=== PATIENT | female | born 1935 | race Hispanic/Latino ===

== ENCOUNTER 2016-05-06 01:52 | Observation (INO) | payer MEDICARE ==
[2016-05-06 01:52] VITALS: BMI 24.7
[2016-05-06 02:07] VITALS: TEMP 98.6
[2016-05-06] MEDS ORDERED: Sodium Chloride 0.9% 1,000 ML IV STA (02:18)
--- NOTE | 2016-05-06 02:34 | ED PDOC ---
HPI: Abdomen Time Seen by Provider: 05/06/16 01:58 Chief Complaint (Nursing): Abdominal Pain Chief Complaint (Provider): Abdominal pain, nausea, vomiting History Per: Patient History/Exam Limitations: no limitations Onset/Duration Of Symptoms: Hrs (1) Current Symptoms Are (Timing): Still Present Severity: Moderate Quality Of Discomfort: "Pain" Associated Symptoms: Nausea, Vomiting. denies: Fever, Chest Pain Additional Complaint(s): Diandra Nowak is a 81 y/o female, with a past medical history of an abdominal aortic aneurysm, diverticulosis, diverticulitis, and hypertension, presenting to the ER on 05/06/2016 with complaints of acute abdominal pain, nausea, and vomiting x1 hour. Patient reports abdominal pain began when she was lying awake in her bed. Pain, which radiates to her lower back, later became associated with nausea and vomiting x3 (non-bloody/non-bilious). Patient states her symptoms may have developed after consuming pizza earlier this evening. Patient denies any associated fever, cough, SOB, or CP. Patient mentioned developing mild dizziness in addition. Past Medical History Reviewed: Historical Data, Nursing Documentation, Vital Signs Vital Signs: Last Vital Signs Temp 98.6 F 05/06/16 02:03 Pulse 75 05/06/16 06:59 Resp 20 05/06/16 06:59 BP 128/59 L 05/06/16 06:59 Pulse Ox 96 05/06/16 11:06 - Medical History PMH: Anxiety, Bipolar Disorder, Diverticulitis, HTN, Hypercholesterolemia, Hyperlipidemia Denies: HIV, Chronic Kidney Disease - Surgical History Surgical History: (x3) Other surgeries: aortic aneurysm - Family History Family History: States: Unknown Family Hx - Social History Ex-Smoker (has not smoked in the last 12 months): Yes - Home Medications Home Medications: Ambulatory Orders Medication Instructions Recorded Atorvastatin [Lipitor] 20 mg PO DAILY 05/06/16 Cholecalciferol (Vitamin D3) 1,000 mg PO DAILY 05/06/16 [Vitamin D3] Ibuprofen/Pseudoephedrine HCl 1 cap PO PRN PRN 05/06/16 [Advil Cold-Sinus Liqui-Gels] Lorazepam [Ativan] 1 mg PO TID 05/06/16 Metoprolol Succinate [Metoprolol 50 mg PO DAILY 05/06/16 Succinate] Multivitamin/Iron/Folic Acid 1 tab PO DAILY 05/06/16 [Centrum] Sulfamethoxazole/Trimethoprim 1 tab PO BID #14 tab 05/06/16 [Bactrim DS 800 mg-160 mg] amLODIPine [Norvasc] 5 mg PO DAILY 05/06/16 - Allergies Allergies/Adverse Reactions: Allergies Allergy/AdvReac Type Severity Reaction Status Date / Time No Known Allergies Allergy Verified 10/06/13 07:36 Review of Systems ROS Statement: Except As Marked, All Systems Reviewed And Found Negative Constitutional: Negative for: Fever Cardiovascular: Negative for: Chest Pain Respiratory: Negative for: Cough, Shortness of Breath Gastrointestinal: Positive for: Nausea, Vomiting, Abdominal Pain Neurological: Positive for: Dizziness Physical Exam - Reviewed Nursing Documentation Reviewed: Yes Vital Signs Reviewed: Yes - Physical Exam Appears: Positive for: Uncomfortable Head Exam: Positive for: ATRAUMATIC, NORMOCEPHALIC Skin: Positive for: Normal Color Eye Exam: Positive for: Normal appearance, EOMI, PERRL ENT: Positive for: Other (dry mucous membranes ) Neck: Positive for: Normal, Painless ROM, Supple Cardiovascular/Chest: Positive for: Regular Rate, Rhythm. Negative for: Murmur Respiratory: Positive for: Normal Breath Sounds. Negative for: Respiratory Distress Gastrointestinal/Abdominal: Positive for: Tenderness ((+) epigastric and RUQ) Extremity: Positive for: Normal ROM. Negative for: Deformity Neurologic/Psych: Positive for: Alert, Oriented, Gait (steady). Negative for: Motor/Sensory Deficits - Laboratory Results Result Diagrams: 05/06/16 02:40 05/06/16 02:40 - ECG O2 Sat by Pulse Oximetry: 100 Medical Decision Making Medical Decision Makin:58 Initial Impression- acute abdominal pain, nausea, vomiting, in setting of known diverticuli disease. Initial Plan- * CT Abd/Pelvis * EKG * CMP * Lactic Acid * Lipase * Troponin * Urine Dip * CBC w/ differential * PTT * PT * CXR * Morphine 4 mg IV * Sodium Chloride 1,000 ml IV * Pepcid 20 mg IV * Zofran 4 mg IV * Urinalysis * Re-evaluate Documented by Angie Valdez, acting as a scribe for Juan Pablo Chamberlain MD. All medical record entries made by the Scribe were at my direction and personally dictated by me. I have reviewed the chart and agree that the record accurately reflects my personal performance of the history, physical exam, medical decision making, and the department course for this patient. I have also personally directed, reviewed, and agree with the discharge instructions and disposition. ED OBSERVATION Date of observation admission: 05/06/16 Time of observation admission: 03:00 - Observation admission statement Patient is being placed in observation because:: Secondary to ED workup - Goals of Observation Goals of observation are:: Pending CT and re-evaluation - Progress Note Progress Note: 05/06/16 07:00 Signing pt out to Dr. Natalie MD. Pending CT report and re-evaluation. Disposition - Clinical Impression Clinical Impression: UTI (urinary tract infection) - Patient ED Disposition Is Patient to be Admitted: Transfer of Care - Disposition Disposition: Transfer of Care Disposition Time: 07:00 Condition: FAIR Patient Signed Over To: Geri Estrada
[2016-05-06 02:46] LABS: BASO # 0.1 K/uL (0.0-0.2); BASO % 0.5 % (0.0-2.0); LYMPH # 0.5 K/uL (1.0-4.3); MEAN CELL VOLUME 84.9 fl (81.0-99.0); MEAN CORPUSCULAR HEMOGLOBIN 27.3 pg (27.0-31.0); MEAN CORPUSCULAR HGB CONC 32.2 g/dL (33.0-37.0); MEAN PLATELET VOLUME 9.1 fl (7.2-11.7); MONO # 0.2 K/uL (0.0-0.8); MONO % 1.8 % (0.0-10.0); NEUT # 10.5 K/uL (1.8-7.0); NEUT % 93.7 % (50.0-75.0); PLATELET COUNT 177 K/uL (130-400); RED CELL DISTRIBUTION WIDTH 15.5 % (11.5-14.5); WHITE BLOOD COUNT 11.2 K/uL (4.8-10.8)
[2016-05-06] MEDS ORDERED: Iohexol 240 (50 ml) ONE (02:50)
[2016-05-06 02:52] LABS: ALB/GLOB RATIO 1.4 (1.0-2.1); ALKALINE PHOSPHATASE 104 U/L (38-126); ALT/SGPT 29 U/L (9-52); AST/SGOT 24 U/L (14-36); BILIRUBIN,TOTAL 1.5 mg/dl (0.2-1.3); BLOOD UREA NITROGEN 19 mg/dl (7-17); CALCIUM 9.3 mg/dL (8.4-10.2); CARBON DIOXIDE 25 mmol/L (22-30); CHLORIDE 104 mmol/L (98-107); GFR AFRICAN-AMERICAN > 60; GLUCOSE,RANDOM 153 mg/dL (65-105); LIPASE 56 U/L (23-300); POTASSIUM 3.9 MMOL/L (3.6-5.0); SODIUM 142 mmol/l (132-148)
[2016-05-06 03:03] LABS: PARTIAL THROMBOPLASTIN TIME 23.8 SECONDS (23.3-32.5)
[2016-05-06] MEDS: Iohexol 240 (50 ml) PO ONE ×2 (03:07→06:54)
[2016-05-06 03:40] VITALS: RESP 20
[2016-05-06 03:43] LABS: NEUTROPHIL 93 % (42-75); REACTIVE LYMPHOCYTES 1 % (0-0); TOTAL CELLS COUNTED 100
[2016-05-06 06:10] LABS: RBC URINE 63 /hpf (0-3); URINE BACTERIA MANY (<OCC); URINE BILIRUBIN NEGATIVE (NEGATIVE); URINE BLOOD MODERATE (NEGATIVE); URINE COLOR AMBER (YELLOW); URINE GLUCOSE (UA) NEG (Normal); URINE KETONE 20 mg/dL (NEGATIVE); URINE LEUKOCYTE ESTERASE MOD Leu/uL (Negative); URINE PROTEIN NEGATIVE (NEGATIVE); URINE UROBILINOGEN 0.2-1.0 mg/dL (0.2-1.0); WBC URINE 17 /hpf (0-5)
--- NOTE | 2016-05-06 06:59 | RAD ---
HISTORY: abd pain COMPARISON: No prior. FINDINGS: LUNGS: No active pulmonary disease. PLEURA: No significant pleural effusion identified, no pneumothorax apparent. CARDIOVASCULAR: Normal. Atherosclerotic aorta. OSSEOUS STRUCTURES: No significant abnormalities. VISUALIZED UPPER ABDOMEN: Normal. OTHER FINDINGS: None. IMPRESSION: No active disease.
[2016-05-06 07:00] VITALS: BP 128/59; PULSE 75
--- NOTE | 2016-05-06 07:07 | ED PDOC ---
- Laboratory Results Result Diagrams: 05/06/16 02:40 05/06/16 02:40 - ECG O2 Sat by Pulse Oximetry: 96 (RA) Pulse Ox Interpretation: Normal Medical Decision Making Medical Decision Makin signed over to me by kathryn Chamberlain MD pending CT, reassessment. Disposition Doctor Will See Patient In The: Office - Clinical Impression Clinical Impression: Urinary tract infection - POA Present On Arrival: None - Disposition Disposition: Routine/Home Disposition Time: 03:00 Condition: STABLE ED OBSERVATION Discharge: Yes Date of observation admission: 05/06/16 Time of observation admission: 03:00 - Progress Note Progress Note: 05/06/16 11:06 feeling better. labs c/w UTI. Additional Comments - Additional Comments Additional Comments: Scribe Attestation Documented by Jfefy Barbosa, acting as a scribe for Geri Estrada MD. Provider Scribe Attestation All medical record entries made by the Scribe were at my direction and personally dictated by me. I have reviewed the chart and agree that the record accurately reflects my personal performance of the history, physical exam, medical decision making, and the department course for this patient. I have also personally directed, reviewed, and agree with the discharge instructions and disposition.
--- NOTE | 2016-05-06 08:15 | CARD ---
APPROVED REPORT EKG Measurement Heart [id number] <Conclusion> Sinus rhythm with sinus arrhythmia with 1st degree AV block Left axis deviation Left bundle branch block Abnormal ECG
--- NOTE | 2016-05-06 09:03 | CT ---
PROCEDURE: CT Abdomen and Pelvis with contrast HISTORY: epigastric pain COMPARISON: 11/12/2015 TECHNIQUE: Contrast dose: Radiation dose: Total exam DLP = mGy-cm. FINDINGS: LOWER THORAX: Unremarkable. Small hiatal hernia. LIVER: Unremarkable. No gross lesion or ductal dilatation. GALLBLADDER AND BILE DUCTS: Gallstones. PANCREAS: Unremarkable. No gross lesion or ductal dilatation. SPLEEN: Unremarkable. ADRENALS: Unremarkable. No mass. KIDNEYS AND URETERS: 5 centimeter left lower pole renal cyst. VASCULATURE: 3.8 centimeter infrarenal abdominal aortic aneurysm status post endograft repair. No evidence of endograft leak. BOWEL: Extensive colonic diverticulosis. APPENDIX: Normal appendix. PERITONEUM: Unremarkable. No free fluid. No free air. LYMPH NODES: Unremarkable. No enlarged lymph nodes. BLADDER: Unremarkable. REPRODUCTIVE: Hysterectomy. BONES: No acute fracture. OTHER FINDINGS: None. IMPRESSION: 3.8 centimeter infrarenal abdominal aortic aneurysm status post endograft repair. No evidence of endograft leak. Gallstones. No significant interval change.
[2016-05-06] MEDS ORDERED: Tmp-Smz 800 mg-160 mg DS Tab PO STA (10:32)
[2016-05-06] MEDS ORDERED: Tmp-Smz 800 mg-160 mg DS Tab ONE (11:13)
[2016-05-06 22:12] VITALS: O2SAT 100
== END 2016-05-06 11:07 | disposition home or self-care (01) ==
LOC: H.ER 01:52 → H.EROBSV 03:00
PROVIDERS: ADMIT Emergency Medicine; ATTEND Emergency Medicine
DX: N39.0 Urinary tract infection, site not specified (principal); Z87.891 Personal history of nicotine dependence; I10 Essential (primary) hypertension; E78.00 Pure hypercholesterolemia, unspecified; E78.5 Hyperlipidemia, unspecified; F31.9 Bipolar disorder, unspecified; F41.9 Anxiety disorder, unspecified
CPT/HCPCS: 71010; 74177; 80053; 81003; 83605; 83690; 84484; 85025; 85610; 85730; 87086; 93005; 96360; 96361; 99285; G0378; J2270; J2405; J7040

== ENCOUNTER 2016-05-10 13:33 | Inpatient (IN) | payer MEDICARE ==
[2016-05-10 13:33] VITALS: BMI 24.7
--- NOTE | 2016-05-10 14:08 | ED PDOC ---
HPI: Abdomen Time Seen by Provider: 05/10/16 13:50 Chief Complaint (Nursing): Abdominal Pain Chief Complaint (Provider): Abdominal Pain History Per: Patient History/Exam Limitations: no limitations Onset/Duration Of Symptoms: Days (x2) Associated Symptoms: Back Pain (lower back pain). denies: Fever, Nausea, Vomiting, Diarrhea Additional Complaint(s): 13:50 Diandra Nowak is an 81 year old female with a history of hypertension, hypercholesterolemia, hyperlipidemia, diverticulitis, and seizures that presents to the ED with a chief complains of stomach pain that she has been experiencing for the past two days. Patient states that the pain is constant, and that it has radiated to her lower back, "near the top of her rectum." She was seen in the ED five days ago for abdominal pain as well, at which point she was diagnosed with a UTI and was given antibiotics. Patient reports that she has yet to take any pain medication, and denies any nausea, vomiting, diarrhea, fever, dysuria, or syncope. PMD: Michael Vincent [employer] [facility]- Dr. Conde Past Medical History Reviewed: Historical Data, Nursing Documentation, Vital Signs Vital Signs: Last Vital Signs Temp 97.7 F 05/11/16 08:44 Pulse 67 05/11/16 09:30 Resp 18 05/11/16 08:44 BP 110/60 05/11/16 09:30 Pulse Ox 93 L 05/11/16 08:44 - Medical History PMH: Anxiety, Bipolar Disorder, Diverticulitis, HTN, Hypercholesterolemia, Hyperlipidemia Denies: HIV, Chronic Kidney Disease - Surgical History Surgical History: (x3) Other surgeries: aortic aneurysm graft - Family History Family History: States: Unknown Family Hx - Home Medications Home Medications: Ambulatory Orders Medication Instructions Recorded Atorvastatin [Lipitor] 20 mg PO DAILY 05/06/16 Lorazepam [Ativan] 1 mg PO TID 05/06/16 Metoprolol Succinate [Metoprolol 50 mg PO DAILY 05/06/16 Succinate] amLODIPine [Norvasc] 5 mg PO DAILY 05/06/16 - Allergies Allergies/Adverse Reactions: Allergies Allergy/AdvReac Type Severity Reaction Status Date / Time No Known Allergies Allergy Verified 05/10/16 13:41 Review of Systems Constitutional: Negative for: Fever Gastrointestinal: Positive for: Abdominal Pain (episgatric pain). Negative for : Nausea, Vomiting, Diarrhea Genitourinary Female: Negative for: Dysuria Musculoskeletal: Positive for: Back Pain (lower back pain) Neurological: Negative for: Other (syncope) Physical Exam - Reviewed Nursing Documentation Reviewed: Yes Vital Signs Reviewed: Yes - Physical Exam Appears: Positive for: Non-toxic, Uncomfortable Head Exam: Positive for: ATRAUMATIC, NORMOCEPHALIC Skin: Positive for: Normal Color, Dry Cardiovascular/Chest: Positive for: Regular Rate, Rhythm. Negative for: Murmur Respiratory: Positive for: Normal Breath Sounds. Negative for: Wheezing Gastrointestinal/Abdominal: Positive for: Soft, Tenderness (epigastric tenderness). Negative for: Mass, Distended Back: Positive for: Normal Inspection Neurologic/Psych: Positive for: Alert, Oriented - Laboratory Results Result Diagrams: 05/11/16 05:30 05/11/16 05:30 - ECG O2 Sat by Pulse Oximetry: 99 (RA) Pulse Ox Interpretation: Normal Medical Decision Making Medical Decision Makin:15 Initial Impression: Abdominal Aortic Aneurysm vs. Rupture vs. Leaking AAA vs. Gastritis vs. Pancreatitis vs. Diverticulitis vs. Worsening UTI Initial Plan: * CT Scan A/P with contrast * EKG * CBC * CMP * Lipase * Troponin * Urine dip * Urinlaysis * Morphine 4 mg IV * Iohexol 50 ml INH * Reevaluation Results from Patient's CT A/P from 05/06/16 FINDINGS: LOWER THORAX: Unremarkable. Small hiatal hernia. LIVER: Unremarkable. No gross lesion or ductal dilatation. GALLBLADDER AND BILE DUCTS: Gallstones. PANCREAS: Unremarkable. No gross lesion or ductal dilatation. SPLEEN: Unremarkable. ADRENALS: Unremarkable. No mass. KIDNEYS AND URETERS: 5 centimeter left lower pole renal cyst. VASCULATURE: 3.8 centimeter infrarenal abdominal aortic aneurysm status post endograft repair. No evidence of endograft leak. BOWEL: Extensive colonic diverticulosis. APPENDIX: Normal appendix. PERITONEUM: Unremarkable. No free fluid. No free air. LYMPH NODES: Unremarkable. No enlarged lymph nodes. BLADDER: Unremarkable. REPRODUCTIVE: Hysterectomy. BONES: No acute fracture. OTHER FINDINGS: None. IMPRESSION: 3.8 centimeter infrarenal abdominal aortic aneurysm status post endograft repair. No evidence of endograft leak. Gallstones. No significant interval change. Scribe Attestation: Documented by Teresa Meier, acting as a scribe for Kyung Cooper MD. Provider Scribe Attestation: All medical record entries made by the Scribe were at my direction and personally dictated by me. I have reviewed the chart and agree that the record accurately reflects my personal performance of the history, physical exam, medical decision making, and the department course for this patient. I have also personally directed, reviewed, and agree with the discharge instructions and disposition. Disposition - Clinical Impression Clinical Impression: Diverticulitis - Patient ED Disposition Is Patient to be Admitted: Transfer of Care Counseled Patient/Family Regarding: Studies Performed, Diagnosis - Disposition Disposition: Transfer of Care Disposition Time: 15:00 Condition: FAIR Patient Signed Over To: Lora Rowe Handoff Comments: pending CT abdomen.
[2016-05-10] MEDS ORDERED: Iohexol 240 (50 ml) PO ONE (14:20)
[2016-05-10] MEDS ORDERED: Iohexol 240 (50 ml) ONE (14:23)
[2016-05-10 14:51] LABS: BASO # 0.1 K/uL (0.0-0.2); BASO % 0.6 % (0.0-2.0); EOS # 0.1 K/uL (0.0-0.7); EOS % 0.5 % (0.0-4.0); HEMATOCRIT 44.1 % (34.0-47.0); LYMPH # 0.9 K/uL (1.0-4.3); LYMPH % 6.5 % (20.0-40.0); MEAN CELL VOLUME 83.6 fl (81.0-99.0); MEAN CORPUSCULAR HEMOGLOBIN 28.2 pg (27.0-31.0); MEAN CORPUSCULAR HGB CONC 33.7 g/dL (33.0-37.0); MONO # 0.5 K/uL (0.0-0.8); MONO % 4.1 % (0.0-10.0); NEUT # 11.8 K/uL (1.8-7.0); NEUT % 88.3 % (50.0-75.0); PLATELET COUNT 211 K/uL (130-400); RED CELL DISTRIBUTION WIDTH 15.3 % (11.5-14.5); WHITE BLOOD COUNT 13.3 K/uL (4.8-10.8)
[2016-05-10 15:02] LABS: ALB/GLOB RATIO 1.3 (1.0-2.1); BILIRUBIN,TOTAL 1.5 mg/dl (0.2-1.3); CALCIUM 10.5 mg/dL (8.4-10.2); POTASSIUM 3.5 MMOL/L (3.6-5.0); TOTAL PROTEIN 6.9 G/DL (6.3-8.2)
--- NOTE | 2016-05-10 15:08 | ED PDOC ---
- Laboratory Results Result Diagrams: 05/10/16 14:00 05/10/16 14:00 - ECG O2 Sat by Pulse Oximetry: 99 (RA) Medical Decision Making Medical Decision Makin:00 Patient signed out to me by Dr. Cooper pending CT. 19:18 Discussed with patient the results of CT Scan, will send the patient the results. Patient given IV antibiotics. Spoke to Dr. Vincent, will get in contact with hospitalist to admit patient. CT Scan A/P FINDINGS: LOWER THORAX: Unremarkable. LIVER: Unremarkable. No gross lesion or ductal dilatation. GALLBLADDER AND BILE DUCTS: Small stones are layered in the gallbladder PANCREAS: Unremarkable. No gross lesion or ductal dilatation. SPLEEN: Unremarkable. ADRENALS: Unremarkable. No mass. KIDNEYS AND URETERS: Unremarkable. No hydronephrosis. No solid mass. VASCULATURE: There is an aortic endo graft in place. The aorta measures 3.8 cm in diameter. BOWEL: There is severe diverticulosis of the sigmoid colon. Minimal inflammatory changes are seen in the adjacent fat planes which could be chronic. Mild acute diverticulitis is also possible. There is a moderate amount of stool in the rectum APPENDIX: Unremarkable. Normal appendix. PERITONEUM: Unremarkable. No free fluid. No free air. LYMPH NODES: Unremarkable. No enlarged lymph nodes. BLADDER: Unremarkable. REPRODUCTIVE: Unremarkable. BONES: No acute fracture. OTHER FINDINGS: None. IMPRESSION: There is severe diverticulosis of the sigmoid colon with possible mild diverticulitis. 19:[address] Curtis, agreed to admit patient. iv abx ordered. pt and pts son aware. Scribe Attestation: Documented by Teresa Meier, acting as a scribe for Lora Rowe MD. Provider Scribe Attestation: All medical record entries made by the Scribe were at my direction and personally dictated by me. I have reviewed the chart and agree that the record accurately reflects my personal performance of the history, physical exam, medical decision making, and the department course for this patient. I have also personally directed, reviewed, and agree with the discharge instructions and disposition. Disposition Discussed With : He Calix Counseled Patient/Family Regarding: Studies Performed, Diagnosis - Clinical Impression Clinical Impression: Diverticulitis - POA Present On Arrival: None - Disposition Disposition: Admitted as In-Patient Disposition Time: 19:25 Condition: FAIR
[2016-05-10 15:14] LABS: TROPONIN I 0.018 ng/mL (0.00-0.120)
[2016-05-10 15:53] LABS: EOSINOPHIL 1 % (0-7); NEUTROPHIL 91 % (42-75); REACTIVE LYMPHOCYTES 1 % (0-0); TOTAL CELLS COUNTED 100
--- NOTE | 2016-05-10 17:58 | CARD ---
APPROVED REPORT EKG Measurement Heart [id number] <Conclusion> Sinus rhythm with frequent premature ventricular complexes Left axis deviation Left bundle branch block Abnormal ECG
--- NOTE | 2016-05-10 18:51 | CT ---
PROCEDURE: CT Abdomen and Pelvis without intravenous contrast HISTORY: abdominal pain COMPARISON: 05/06/2016 TECHNIQUE: Without contrast.. Contrast Dose: Radiation dose: Total exam DLP = 384 mGy-cm. FINDINGS: LOWER THORAX: Unremarkable. LIVER: Unremarkable. No gross lesion or ductal dilatation. GALLBLADDER AND BILE DUCTS: Small stones are layered in the gallbladder PANCREAS: Unremarkable. No gross lesion or ductal dilatation. SPLEEN: Unremarkable. ADRENALS: Unremarkable. No mass. KIDNEYS AND URETERS: Unremarkable. No hydronephrosis. No solid mass. VASCULATURE: There is an aortic endo graft in place. The aorta measures 3.8 cm in diameter. BOWEL: There is severe diverticulosis of the sigmoid colon. Minimal inflammatory changes are seen in the adjacent fat planes which could be chronic. Mild acute diverticulitis is also possible. There is a moderate amount of stool in the rectum APPENDIX: Unremarkable. Normal appendix. PERITONEUM: Unremarkable. No free fluid. No free air. LYMPH NODES: Unremarkable. No enlarged lymph nodes. BLADDER: Unremarkable. REPRODUCTIVE: Unremarkable. BONES: No acute fracture. OTHER FINDINGS: None. IMPRESSION: There is severe diverticulosis of the sigmoid colon with possible mild diverticulitis.
[2016-05-10] MEDS ORDERED: Piperacillin/Tazobact 4.5 GM in Sodium Chloride 0.9% 100 ML IVPB STA (19:14)
[2016-05-10 19:58] LABS: RBC URINE 6 /hpf (0-3); URINE BACTERIA RARE (<OCC); URINE BILIRUBIN NEGATIVE (NEGATIVE); URINE BLOOD NEGATIVE (NEGATIVE); URINE COLOR AMBER (YELLOW); URINE GLUCOSE (UA) NEG (Normal); URINE KETONE TRACE mg/dL (NEGATIVE); URINE LEUKOCYTE ESTERASE TRACE Leu/uL (Negative); URINE PROTEIN 30 mg/dL (NEGATIVE); WBC URINE 5 /hpf (0-5)
--- NOTE | 2016-05-10 20:02 | CP.PCM.HP ---
History of Present Illness - History of Present Illness History of Present Illness: 81 yo female with history of HTN, Diverticulitis and Thoracic AA repaired 8 yrs ago came in because of lower abdominal pain since 6 days ago. She was seen in the ER and was sent home with PO antibiotics. She claimed partial relief but yesterday she claimed pain came back as intense as before. Denied vomiting and diarrhea but admitted having nausea. Present on Admission - Present on Admission Any Indicators Present on Admission: No History of DVT/PE: No History of Uncontrolled Diabetes: No Urinary Catheter: No Decubitus Ulcer Present: No Review of Systems - Review of Systems All systems: reviewed and no additional remarkable complaints except (aside from those mentioned above, 12 point system review were negative by me) Past Patient History - Infectious Disease Hx of Infectious Diseases: None - Tetanus Immunizations Tetanus Immunization: Unknown - Past Medical History & Family History Past Medical History?: Yes - Past Social History Smoking Status: Light Smoker < 10 Cigarettes Daily - CARDIAC Hx Hypercholesterolemia: Yes Hx Hypertension: Yes - PULMONARY Hx Respiratory Disorders: No - NEUROLOGICAL Hx Neurological Disorder: No - HEENT Hx HEENT Problems: No - RENAL Hx Chronic Kidney Disease: No - ENDOCRINE/METABOLIC Hx Endocrine Disorders: No - HEMATOLOGICAL/ONCOLOGICAL Hx Human Immunodeficiency Virus (HIV): No - INTEGUMENTARY Hx Dermatological Problems: No - MUSCULOSKELETAL/RHEUMATOLOGICAL Hx Musculoskeletal Disorders: No - GASTROINTESTINAL Hx Diverticulitis: Yes - GENITOURINARY/GYNECOLOGICAL Hx Genitourinary Disorders: No - PSYCHIATRIC Hx Anxiety: Yes Hx Bipolar Disorder: Yes - SURGICAL HISTORY Hx Abdominal Aortic Aneurysm Repair: Yes (thoracoabdominal aneurysm repair [address] Crow at [facility] (formerly [facility] Hx Section: Yes (x3) Hx Hysterectomy: Yes Hx Open Reduction Internal Fixation: Yes (right ankle) Hx Orthopedic Surgery: Yes Other/Comment: 3c/section,marcella,hemorroidectomy,tumor on thyroid,fx right ankle - ANESTHESIA Hx Anesthesia: Yes Hx Anesthesia Reactions: No Hx Malignant Hyperthermia: No Meds Allergies/Adverse Reactions: Allergies Allergy/AdvReac Type Severity Reaction Status Date / Time No Known Allergies Allergy Verified 05/10/16 13:41 Physical Exam - Constitutional Appears: No Acute Distress - Head Exam Head Exam: ATRAUMATIC - Eye Exam Eye Exam: absent: Scleral icterus - ENT Exam ENT Exam: Mucous Membranes Moist - Neck Exam Neck exam: Negative for: Meningismus - Respiratory Exam Respiratory Exam: absent: Rhonchi, Wheezes, Respiratory Distress - Cardiovascular Exam Cardiovascular Exam: Irregular Rhythm - GI/Abdominal Exam GI & Abdominal Exam: Soft. absent: Tenderness - Rectal Exam Rectal Exam: Deferred - Extremities Exam Extremities exam: Negative for: calf tenderness, pedal edema - Back Exam Back exam: absent: tenderness - Neurological Exam Neurological exam: Alert, Oriented x3 - Psychiatric Exam Psychiatric exam: Normal Affect - Skin Skin Exam: Dry, Intact Results - Vital Signs Recent Vital Signs: Last Vital Signs Temp 98.8 F 05/10/16 13:39 Pulse 69 05/10/16 19:00 Resp 18 05/10/16 19:00 BP 117/54 L 05/10/16 19:00 Pulse Ox 99 05/10/16 19:28 - Labs Result Diagrams: 05/10/16 14:00 05/10/16 14:00 Assessment & Plan (1) Diverticulitis Status: Acute Comment: admit to med/surg. blood culture x 2. Cipro 400mg IV q 12hrs. Flagyl 500mg IV q 8hrs. Morphine 2mg IV q 4hrs prn. GI consult with Dr Mckeon (2) HTN (hypertension) Status: Chronic Comment: BP stable. Metoprolol Suc 50mg PO daily. Norvasc 5mg PO daily (3) Thoracic aortic aneurysm Status: Resolved Comment: repaired 8 yrs ago. denied chest pain
[2016-05-10] MEDS ORDERED: metroNIDAZOLE 500mg/100ml NS 100 ML IVPB ONE (20:52)
[2016-05-10] MEDS: Sodium Chloride 0.9% 1,000 ML IV SCH (21:06)
[2016-05-10] MEDS: metroNIDAZOLE 500mg/100ml NS 100 ML IVPB SCH (21:06)
[2016-05-10] MEDS: Ciprofloxacin 400mg/200ml D5W 200 ML IVPB SCH (23:21)
[2016-05-11] MEDS: metroNIDAZOLE 500mg/100ml NS 100 ML IVPB SCH ×2 (01:00→09:23)
[2016-05-11] MEDS: Sodium Chloride 0.9% 1,000 ML IV SCH (06:22)
[2016-05-11 07:09] LABS: BASO # 0.1 K/uL (0.0-0.2); BASO % 0.8 % (0.0-2.0); EOS # 0.1 K/uL (0.0-0.7); EOS % 1.3 % (0.0-4.0); HEMATOCRIT 38.5 % (34.0-47.0); LYMPH # 1.2 K/uL (1.0-4.3); LYMPH % 12.4 % (20.0-40.0); MEAN CORPUSCULAR HEMOGLOBIN 27.8 pg (27.0-31.0); MEAN CORPUSCULAR HGB CONC 32.6 g/dL (33.0-37.0); MEAN PLATELET VOLUME 9.8 fl (7.2-11.7); MONO # 0.7 K/uL (0.0-0.8); MONO % 6.6 % (0.0-10.0); NEUT # 7.9 K/uL (1.8-7.0); NEUT % 78.9 % (50.0-75.0); RED CELL DISTRIBUTION WIDTH 15.3 % (11.5-14.5)
[2016-05-11 07:18] LABS: CALCIUM 8.6 mg/dL (8.4-10.2); POTASSIUM 3.8 MMOL/L (3.6-5.0)
[2016-05-11 08:44] VITALS: RESP 18
[2016-05-11] MEDS ORDERED: Metoprolol Succinate 50 mg XL Tab PO SCH (09:00)
[2016-05-11] MEDS: Ciprofloxacin 400mg/200ml D5W 200 ML IVPB SCH (09:25)
--- NOTE | 2016-05-11 15:26 | CON ---
DATE: 05/11/2016 REFERRED BY: Dr. Fabian. HISTORY OF PRESENT ILLNESS: This is an 81-year-old woman who was admitted with complaint of left low er quadrant pain and discomfort, some constipation, on a CAT scan found to have severe diverticulosis in that area with some mild stranding suspicious for a mild case of diverticulitis. At the time of my evaluation, she is lying comfortably in bed. She did have some nausea, which has improved over e last 24 hours as well as her pain. There was no vomiting or fevers or chills. ALLERGIES: She has no known drug allergies. MEDICATIONS: She was on medications at home. Here she has been on IV Cipro, Flagyl, Ambien on a p.r .n. basis, morphine on a p.r.n. basis. She was getting IV fluids, pantoprazole 40 mg IV daily was be ing given as well as metoprolol 50 mg daily. PAST MEDICAL AND SURGICAL HISTORY: Hypertension, peripheral vascular disease as well as a history of aortic aneurysm repair. She has had multiple surgeries including aortic aneurysm repair, peripheral stents inserted. She had had a hysterectomy with appendectomy. She had four C-sections. FAMILY HISTORY: Noncontributory. SOCIAL HISTORY: She still smokes cigarettes. No alcohol or drug use. PHYSICAL EXAMINATION: GENERAL: She is a well-developed, well-nourished elderly woman. Awake, alert, and oriente d x 3, in no acute distress. VITAL SIGNS: Stable. She is afebrile. ABDOMEN: Soft. Positive bowel sounds. There is tenderness to palpation in the left lower quadrant. No palpable masses or lesions. LABORATORY DATA: Yesterday, her white count was 13.3, today is down to 10. Otherwise, CBC is unrema rkable. SMA-7 and LFTs were all within normal limits. CAT scan was noted and reported as per the HP I. IMPRESSION AND PLAN: An 81-year-old woman with severe diverticular disease in the left lower quadran t. Also seems to have a mild case of diverticulitis given the elevated white blood cell count and CA T scan findings. I do believe she had a case of inflammation with diverticulitis for which I think t he Cipro and Flagyl is appropriate. Her diet has been advanced. If tolerated, she could be discharg ed home on oral Cipro and oral Flagyl for at least another 8 days. She can follow up with me in my o ffice on an outpatient basis. She should have a colonoscopy done in the next 6-8 weeks. I did take the liberty of starting her on lactulose 30 mL at bedtime as well for constipation and discussed with her increasing her fiber intake once the diverticulitis bout has improved. Over the next month or t wo, she can increase her fiber intake and will follow her up in the office. Zach Rodriguez MD cc: [id number] TT: 05/11/2016 15:25:44 Confirmation # [id number] Dictation # [id number]
[2016-05-11 16:21] VITALS: BP 118/64; PULSE 58; TEMP 98.4; O2SAT 94
--- NOTE | 2016-05-11 18:47 | CP.PCM.DIS ---
Provider - Provider Date of Admission: 05/10/16 19:24 Attending physician: He Calix MD Primary care physician: Dr. Vincent Consults: Gi consult Time Spent in preparation of Discharge (in minutes): 20 Hospital Course - Lab Results Lab Results: Most Recent Lab Values WBC 10.0 K/uL (4.8-10.8) 05/11/16 05:30 RBC 4.53 Mil/uL (3.80-5.20) 05/11/16 05:30 Hgb 12.6 g/dL (12.0-16.0) D 05/11/16 05:30 Hct 38.5 % (34.0-47.0) 05/11/16 05:30 MCV 85.0 fl (81.0-99.0) 05/11/16 05:30 MCH 27.8 pg (27.0-31.0) 05/11/16 05:30 MCHC 32.6 g/dL (33.0-37.0) L 05/11/16 05:30 RDW 15.3 % (11.5-14.5) H 05/11/16 05:30 Plt Count 159 K/uL (130-400) 05/11/16 05:30 MPV 9.8 fl (7.2-11.7) 05/11/16 05:30 Neut % (Auto) 78.9 % (50.0-75.0) H 05/11/16 05:30 Lymph % (Auto) 12.4 % (20.0-40.0) L 05/11/16 05:30 [place] % (Auto) 6.6 % (0.0-10.0) 05/11/16 05:30 Eos % (Auto) 1.3 % (0.0-4.0) 05/11/16 05:30 Baso % (Auto) 0.8 % (0.0-2.0) 05/11/16 05:30 Neut # 7.9 K/uL (1.8-7.0) H 05/11/16 05:30 Lymph # 1.2 K/uL (1.0-4.3) 05/11/16 05:30 [place] # 0.7 K/uL (0.0-0.8) 05/11/16 05:30 Eos # 0.1 K/uL (0.0-0.7) 05/11/16 05:30 Baso # 0.1 K/uL (0.0-0.2) 05/11/16 05:30 Neutrophils % (Manual) 91 % (42-75) H 05/10/16 14:00 Lymphocytes % (Manual) 3 % (20-50) L 05/10/16 14:00 Reactive Lymphs % 1 % (0-0) H 05/10/16 14:00 Monocytes % (Manual) 4 % (0-10) 05/10/16 14:00 Eosinophils % (Manual) 1 % (0-7) 05/10/16 14:00 Platelet Estimate Normal (NORMAL) 05/10/16 14:00 Anisocytosis (manual) Slight 05/10/16 14:00 Sodium 137 mmol/l (132-148) 05/11/16 05:30 Potassium 3.8 MMOL/L (3.6-5.0) 05/11/16 05:30 Chloride 102 mmol/L (98-107) 05/11/16 05:30 Carbon Dioxide 22 mmol/L (22-30) 05/11/16 05:30 Anion Gap 17 (10-20) 05/11/16 05:30 BUN 23 mg/dl (7-17) H 05/11/16 05:30 Creatinine 1.2 mg/dL (0.7-1.2) 05/11/16 05:30 Est GFR ( Amer) 52 05/11/16 05:30 Est GFR (Non-Af Amer) 43 05/11/16 05:30 Random Glucose 80 mg/dL (65-105) 05/11/16 05:30 Calcium 8.6 mg/dL (8.4-10.2) 05/11/16 05:30 Total Bilirubin 1.5 mg/dl (0.2-1.3) H 05/10/16 14:00 AST 29 U/L (14-36) 05/10/16 14:00 ALT 27 U/L (9-52) 05/10/16 14:00 Alkaline Phosphatase 134 U/L (38-126) H D 05/10/16 14:00 Troponin I 0.0180 ng/mL (0.00-0.120) 05/10/16 14:00 Total Protein 6.9 G/DL (6.3-8.2) 05/10/16 14:00 Albumin 3.9 g/dL (3.5-5.0) 05/10/16 14:00 Globulin 3.0 gm/dL (2.2-3.9) 05/10/16 14:00 Albumin/Globulin Ratio 1.3 (1.0-2.1) 05/10/16 14:00 Lipase 54 U/L (23-300) 05/10/16 14:00 Urine Color [place] (YELLOW) 05/10/16 19:30 Urine Clarity Cloudy (Clear) 05/10/16 19:30 Urine pH 5.0 (5.0-8.0) 05/10/16 19:30 Ur Specific [place] 1.020 (1.003-1.030) 05/10/16 19:30 Urine Protein 30 mg/dL (NEGATIVE) 05/10/16 19:30 Urine Glucose (UA) Neg mg/dL (Normal) 05/10/16 19:30 Urine Ketones Trace mg/dL (NEGATIVE) 05/10/16 19:30 Urine Blood Negative (NEGATIVE) 05/10/16 19:30 Urine Nitrate Negative (NEGATIVE) 05/10/16 19:30 Urine Bilirubin Negative (NEGATIVE) 05/10/16 19:30 Urine Urobilinogen 4.0 mg/dL (0.2-1.0) H 05/10/16 19:30 Ur Leukocyte Esterase Trace [place]/uL (Negative) 05/10/16 19:30 Urine RBC (Auto) 6 /hpf (0-3) H 05/10/16 19:30 Urine Microscopic WBC 5 /hpf (0-5) 05/10/16 19:30 Ur Squamous Epith Cells 17 /hpf (0-5) H 05/10/16 19:30 Urine Bacteria Rare (<OCC) 05/10/16 19:30 Hyaline Casts 3-5 /hpf (0-2) H 05/10/16 19:30 - Hospital Course Hospital Course: 81 yo female with history of HTN, Diverticulitis and Thoracic AA repaired 8 yrs ago came in because of lower abdominal pain since 6 days ago. She was seen in the ER and was sent home with PO antibiotics. She claimed partial relief but yesterday she claimed pain came back as intense as before. Denied vomiting and diarrhea but admitted having nausea pCt abdomen showed diverticulosis and possible diverticulitis She had abdominal pain and tenderness as well as Tmax 99.7 with WBC 13 K. She was admitted with diagnosis of diverticulitis , started omn Flagyl and Cipro IV with improvement. Patient clinically improved. GI consulted and case discussed with Dr. Rodriguez. Will discharge patient home on Po cipro and flagyl for total 7 days as well as lactulose daily for constipation. She will need to follow up with GI for colonoscopy t as out patient . (1) Diverticulosis with Diverticulitis treated with Cipro and Flagyl Gi consulted follow up as out patient (2) HTN (hypertension) BP stable. Continue Metoprolol and Norvasc 5mg PO daily (3) Thoracic aortic aneurysm Resolved repaired 8 yrs ago. denied chest pain Discharge Exam - Head Exam Head Exam: ATRAUMATIC, NORMOCEPHALIC - Eye Exam Eye Exam: EOMI, Normal appearance, PERRL Pupil Exam: NORMAL ACCOMODATION - ENT Exam ENT Exam: Mucous Membranes Moist, Normal Exam - Neck Exam Neck exam: Full Rom, Normal Inspection - Respiratory Exam Respiratory Exam: Clear to PA & Lateral, NORMAL BREATHING PATTERN. absent: Rales, Rhonchi, Wheezes - Cardiovascular Exam Cardiovascular Exam: REGULAR RHYTHM, RRR, +S1, +S2. absent: JVD - GI/Abdominal Exam GI & Abdominal Exam: Normal Bowel Sounds, Soft. absent: Distended, Guarding, Rebound, Tenderness - Rectal Exam Rectal Exam: Deferred - Extremities Exam Extremities exam: normal capillary refill, normal inspection, pedal pulses present - Back Exam Back exam: NORMAL INSPECTION - Neurological Exam Neurological exam: Alert, CN II-XII Intact, Oriented x3, Reflexes Normal - Psychiatric Exam Psychiatric exam: Normal Affect, Normal Mood - Skin Skin Exam: Dry, Intact, Normal Color, Warm Discharge Plan - Discharge Medications Prescriptions: Ciprofloxacin HCl [Cipro] 500 mg PO Q12 #12 tab Lactulose [Enulose] 20 gm PO DAILY #1 udc metroNIDAZOLE [Flagyl] 500 mg PO TID #18 tab - Follow Up Plan Condition: STABLE Disposition: HOME/ ROUTINE Patient education suggested?: Yes Instructions: Diverticulitis (DC), Diverticulitis Diet (DC) Referrals: Michael Vincent MD [Family Provider] - Zach Rodriguez [Staff Provider] -
== END 2016-05-11 18:46 | disposition home or self-care (01) | DRG 392 ==
LOC: H.ER 13:33 → H.EROBSV 15:00 → UNDOADMOB 16:50 → OBSVTOIN 19:15 → INTOOBSV 19:15 → OBSVTOIN 19:24 → H.ERHOLD 20:30 → H.EROBSV 20:30 → H.ERHOLD 20:55 → H.MEDSURG1 21:40
DX: K57.32 Diverticulitis of large intestine without perforation or abscess without bleeding (principal); I10 Essential (primary) hypertension; E78.5 Hyperlipidemia, unspecified; F17.210 Nicotine dependence, cigarettes, uncomplicated; Z86.79 Personal history of other diseases of the circulatory system